=== PATIENT | female | born 1990 | race Caucasian/White ===

== ENCOUNTER 2018-07-13 08:29 | Inpatient (IN) ==
--- NOTE | 2018-07-13 09:43 | P.HPOB ---
History of Present Illness Primary Care Physician: No Primary Care Physician Chief Complaint: Post dates History of Present Illness: 28-year-old female at 40 weeks and 5 days by 19-week ultrasound presents for induction for postdates. Patient states that she had some vaginal spotting since her cervical exam yesterday. Her exam was 3 cm and 20%. She denies any loss of fluids or decreased movement. She states she is having some Jh Damon contractions. She denies any problems during this . She was GBS negative. She did not do her 1 hour glucose test. She said with her last delivery was vaginal full-term. There was a shoulder dystocia. A month after delivery she had severe hemorrhaging and had DNA testing done. She was MTHFR positive. Past medical history: Denies Surgical history: L foot Allergies: PNC (told as a baby unknown reaction), tetracyclines (itching) Medication: Aspirin Social: Denies any alcohol, tobacco, drug use Weeks Gestation:: 40 Para: 1 : 2 Total # of Miscarriage(s): 0 Total # of Abortions (Spontaneous & Elective): 0 - Inpatient Certification I certify that the inpatient services were ordered in accordance with Medicare regulations governing the order. This includes certification that hospital inpatient services are reasonable and necessary and in the case of services not specified as inpatient-only under 42 CFR 419.22(n), that they are appropriately provided as inpatient services in accordance to with the 2-midnight benchmark under 43 CFR 412.3(e) Review of Systems Constitutional: Denies fever(s) Eyes: Denies change in vision Ears, Nose, Mouth, and Throat: Denies headache(s) Cardiovascular: Denies chest pain Respiratory: Denies cough, Denies shortness of breath, Denies wheezing Gastrointestinal: Denies abdominal pain, Denies vomiting Genitourinary: Reports abnormal vaginal bleeding, Denies painful urination Musculoskeletal: Denies back pain Skin/Breast: Denies rash Neurologic: Denies headache(s) Endocrine: Denies flushing Hematologic/Lymphatic: Denies easy bruising Allergic/Immunologic: Denies hives Medications and Allergies Allergies Allergy/AdvReac Type Severity Reaction Status Date / Time Penicillins Allergy Unknown unknown Verified 07/13/18 09:47 Tetracyclines Allergy Itching Verified 07/13/18 09:47 Exam Vital signs: Vital Signs 03/01/19 09:22 Temperature 98.9 F Pulse Rate 92 H Respiratory Rate 18 Blood Pressure 124/83 Narrative: GENERAL: Well-nourished, well-developed patient. SKIN: Warm and dry. HEAD: Normocephalic and atraumatic. EYES: No scleral icterus. No injection or drainage. ENT: No nasal drainage noted. Mucous membranes pink. Airway patent. NECK: Supple, trachea midline. No JVD. CARDIOVASCULAR: Regular rate and rhythm without murmurs, gallops, or rubs. RESPIRATORY: Breath sounds equal bilaterally. No accessory muscle use. BREASTS: Bilateral exam showed no masses , no retractions, no nipple discharge. ABDOMEN/GI: Abdomen soft, non-tender, bowel sounds present, no rebound, no guarding Gravid to [-] weeks size Fundal Height: [-] GENITOURINARY: External Genitalia: intact and normal in appearance Dilatation:3 Effacement: 80 Station: -2 Membranes: intact Uterine Contractions: none FHT's: Category: 1 Baseline: 140 Reactive: yes Variability: moderate Decels: none EXTREMITIES: No cyanosis or edema. BACK: Nontender without obvious deformity. No CVA tenderness. NEUROLOGICAL: Awake and alert. Motor and sensory grossly within normal limits. Five out of 5 muscle strength in all muscle groups. Normal speech. Caprini VTE Risk Assessment Caprini VTE Risk Assessment: No/Low Risk (score <= 1) Caprini Risk Assessment Model: Point Value = 1 Point Value = 2 Point Value = 3 Point Value = 5 Age 41-60 Minor surgery BMI > 25 kg/m2 Swollen legs Varicose veins or History of unexplained or recurrent spontaneous Oral contraceptives or hormone replacement Sepsis (< 1 month) Serious lung disease, including pneumonia (< 1 month) Abnormal pulmonary function Acute myocardial infarction Congestive heart failure (< 1 month) History of inflammatory bowel disease Medical patient at bed rest Age 61-74 Arthroscopic surgery Major open surgery (> 45 min) Laparoscopic surgery (> 45 min) Malignancy Confined to bed (> 72 hours) Immobilizing plaster cast Central venous access Age >= 75 History of VTE Family history of VTE Factor V Leiden Prothrombin [id number] Lupus anticoagulant Anticardiolipin antibodies Elevated serum homocysteine Heparin-induced thrombocytopenia Other congenital or acquired thrombophilia Stroke (< 1 month) Elective arthroplasty Hip, pelvis, or leg fracture Acute spinal cord injury (< 1 month) Prophylaxis Regimen: Total Risk Factor Score Risk Level Prophylaxis Regimen 0-1 Low Early ambulation 2 Moderate Order ONE of the following: *Sequential Compression Device (SCD) *Heparin 5000 units SQ BID 3-4 Higher Order ONE of the following medications: *Heparin 5000 units SQ TID *Enoxaparin/Lovenox 40 mg SQ daily (WT < 150 kg, CrCl > 30 mL/min) *Enoxaparin/Lovenox 30 mg SQ daily (WT < 150 kg, CrCl > 10-29 mL/min) *Enoxaparin/Lovenox 30 mg SQ BID (WT < 150 kg, CrCl > 30 mL/min) AND/OR *Sequential Compression Device (SCD) 5 or more Highest Order ONE of the following medications: *Heparin 5000 units SQ TID (Preferred with Epidurals) *Enoxaparin/Lovenox 40 mg SQ daily (WT < 150 kg, CrCl > 30 mL/min) *Enoxaparin/Lovenox 30 mg SQ daily (WT < 150 kg, CrCl > 10-29 mL/min) *Enoxaparin/Lovenox 30 mg SQ BID (WT < 150 kg, CrCl > 30 mL/min) AND *Sequential Compression Device (SCD) Assessment and Plan - Diagnosis (1) Post-term , 40-42 weeks of gestation Code(s): O48.0 - Post-term Status: Acute - Plan 28 year old at 40 weeks and 5 days presents for induction for post dates. She was GBS negative. Previous delivery complicated by shoulder dystocia. No PMH. Month after had severe hemorrhage and genetic testing was positive for MTHFR -Admit to Labor and delivery for induction -A1c -US for growth Patient discussed with Dr. Delacruz.
--- NOTE | 2018-07-13 09:47 | P.PN ---
Subjective Interval history: [facility] Attending 28year-old presents for induction of labor at 40.5 scheduled for [facility]. Upon discussion with the patient, the patient had a shoulder dystocia with her previous delivery with a clavicular fracture. We discussed the goal of a healthy and healthy mother. We discussed the risks of vaginal delivery including lacerations, bleeding/ hemorrhage, and shoulder dystocia. We discussed that because she had a shoulder dystocia with her previous delivery, her risk of a recurrence of shoulder dystocia is reported to be as high as 25% and a shoulder dystocia carries with it a risk of approximately 3-5% risk of permanent and irreversible neurological injury that includes but is not limited to / brain damage and irreversible nerve injury to the arm that may affect the child's lifetime ability to move the arm. We discussed the mechanism of shoulder dystocia. The patient refused a delivery several times and stated she "would rather have a shoulder dystocia with an injury to the baby than have a ." She also stated that she is willing to accept the risks of permanent and irreversible injury because she said of her first shoulder dystocia "that's ok because I didn't and the baby didn't ." We discussed that a positive outcome with the last delivery and shoulder dystocia does not predict a good and safe outcome should this occur again. She believes this baby is about the same size as her previous. We discussed other indications for section including maternal indications, indications, and emergent indications. The risks, benefits, and alternatives of section were discussed with the patient. The risks include but are not limited to pain, infection, bleeding, injury to other organs like the bladder/bowel/nerves/vessels, injury to the baby, need for repeat operation, need for hysterectomy, need for blood transfusion, wound infection or breakdown, and other possible risks. All the patient's questions were answered and consent had previously been signed. She is adamant in her desire to proceed with a vaginal delivery, despite the risk of shoulder dystocia and risk of permanent and irreversible injury to the that could lead to brain damage, irreversible nerve injury, and even . We will obtain an ultrasound for growth and HgbA1C for informational purposes because of patient's history and lack of diabetes testing. Physical Exam Vital signs: Vital Signs 07/13/18 09:22 Temperature 98.9 F Pulse Rate 92 H Respiratory Rate 18 Blood Pressure 124/83 Results - Labs CBC & Chem 7: 07/13/18 09:50 07/13/18 09:50
[2018-07-13] MEDS ORDERED: Sod Chloride 0.9% Inj 1,000 ML IV.CONT PRN (09:50)
[2018-07-13] MEDS ORDERED: Sodium Chlor 0.9% Inj 500 ML IV.SIG PRN (09:50)
[2018-07-13] MEDS ORDERED: Oxytocin 30 Units/500ml Premix 30 UNITS/500 ML BAG IV.SIG ONE (09:50)
[2018-07-13] MEDS ORDERED: miSOPROStol 200 MCG Tablet RECTAL PRN (09:50)
[2018-07-13] MEDS ORDERED: Silver Nitrate/Potassium Nitrate Applicator Sticks TOPICAL PRN (09:50)
[2018-07-13] MEDS ORDERED: Carboprost Tromethamine Inj 250 MCG/ML Ampul IM PRN (09:50)
[2018-07-13] MEDS ORDERED: Naloxone Inj 0.4 MG/ML Vial IV.PUSH PRN ×2 (09:50→17:52)
[2018-07-13] MEDS ORDERED: Tranexamic Acid Inj 1,000 MG in Sodium Chlor 0.9% Inj 100 ML IV.SIG PRN (09:50)
[2018-07-13] MEDS ORDERED: Methylergonovine Inj 0.2 MG/ML Ampul IM PRN (09:50)
[2018-07-13] MEDS ORDERED: fentaNYL Citrate Inj 100 MCG/2 ML Ampul IV.PUSH PRN ×2 (09:50)
[2018-07-13] MEDS ORDERED: Citric Acid/Sodium Citrate Liq 30 ML UDC PO SCH (10:00)
[2018-07-13 10:26] LABS: Baso % (Auto) 0.2 % (0.0-2.0); Eos % (Auto) 0.3 % (0.0-4.0); Hematocrit 38.1 % (35.0-46.0); Lymph # (Auto) 1.7 th/mm3 (1.0-4.8); Lymph % (Auto) 19.1 % (9.0-44.0); Mean Corpuscular Hemoglobin 29.2 pg (27.0-34.0); Mean Corpuscular Volume 86.1 fL (80.0-100.0); Mean Platelet Volume 7.7 fL (7.0-11.0); Mono # (Auto) 0.6 th/mm3 (0.0-0.9); Mono % (Auto) 6.4 % (0.0-8.0); Neut # (Auto) 6.7 th/mm3 (1.8-7.7); Platelet Count 234 th/mm3 (150-450); Red Blood Count 4.43 mil/mm3 (4.00-5.30); Red Cell Distribution Width 15.3 % (11.6-17.2); White Blood Count 9.1 th/mm3 (4.0-11.0)
[2018-07-13 10:36] LABS: Bilirubin,Urine Negative (Negative); Clarity,Urine Clear (Clear); Color,Urine Yellow (Yellw/Straw); Glucose,Urine (UA) Negative (Negative); Leukocyte Esterase,Urine Negative (Negative); Mucus,Urine Few /lpf (Occasional); Nitrite,Urine Negative (Negative); Specific Gravity,Urine 1.014 (1.002-1.035); Squamous Epithelial Cell,Urine 1 /hpf (0-5)
[2018-07-13 10:46] LABS: Alanine Aminotransferase 16 U/L (10-53); Albumin 2.8 g/dL (3.4-5.0); Anion Gap 10 meq/L (5-15); Aspartate Aminotransferase 14 U/L (15-37); Blood Urea Nitrogen 5 mg/dL (7-18); Calcium 8.6 mg/dL (8.5-10.1); Carbon Dioxide 22.7 meq/L (21.0-32.0); Chloride 107 meq/L (98-107); Glomerular Filtration Rate Greater Than 89 mL/min (>89); Glucose,Random 67 mg/dL (74-106); Sodium 140 meq/L (136-145)
[2018-07-13 10:49] LABS: Alkaline Phosphatase 211 U/L (45-117); Total Protein 6.8 g/dL (6.4-8.2)
[2018-07-13] MEDS ORDERED: fentaNYL 2MCG-Bupiv 0.125% Epi 150 ML EPIDURAL ONE (12:37)
[2018-07-13] MEDS ORDERED: Lidocaine PF 1% Inj 5 ML Vial ONE (13:24)
[2018-07-13] MEDS ORDERED: Lidocaaine 1.5%/Epinephrine 1:200,000 PF Inj 5 ML Amp ONE (13:24)
[2018-07-13] MEDS ORDERED: fentaNYL 2MCG-Bupiv 0.125% Epi 150 ML EPIDURAL PRN (13:48)
[2018-07-13] MEDS ORDERED: fentaNYL Citrate Inj 100 MCG/2 ML Ampul EPIDURAL ONE (13:48)
[2018-07-13 17:33] LABS: Hemoglobin A1c 4.9 % (4.3-6.0)
--- NOTE | 2018-07-13 17:51 | P.OBDELI ---
Weeks Gestation: 40 Patient Started Active Labor: No Medical Induction of Labor: Yes Medical Induction Start Date: 07/13/18 Anesthesia: Epidural Episiotomy: none Vaginal Delivery: Normal, Spontaneous Presentation: Occiput anterior Nuchal Cord: x1 Delayed Cord Clamping (45 sec): Yes Placenta: Spontaneous delivery, Intact Laceration: 1 deg Repair: Chromic running Estimated blood loss (mL): 50 : Female Female A Delivery Date: 07/13/18 Infant Delivery Time: 17:26 Weight: 3.71 kg score (1 min): 8 score (5 min): 8 Additional Information: Delivered by Dr. Avila Supervised by Dr. WASHINGTON
[2018-07-13] MEDS ORDERED: Oxytocin 30 Units/500ml Premix 30 UNITS/500 ML BAG IV.CONT PRN (17:52)
[2018-07-13] MEDS ORDERED: Bisacodyl 10 MG Supp RECTAL PRN (17:52)
[2018-07-13] MEDS ORDERED: Zolpidem Tartrate 5 MG Tablet PO PRN (17:52)
[2018-07-13] MEDS ORDERED: Benzocaine 20% Top Spray 60 ML Can TOPICAL PRN (17:52)
[2018-07-13] MEDS ORDERED: Witch Hazel 50%/Glyderin 12.5% 40 Pad Jar RECTAL PRN (17:52)
[2018-07-13] MEDS ORDERED: Tranexamic Acid Inj 1,000 MG in Sodium Chlor 0.9% Inj 100 ML IV.SIG SCH (18:00)
[2018-07-13] MEDS ORDERED: Measles/Mumps/Rubella Vaccine Inj 0.5 ML Vial SQ ONE (21:00)
[2018-07-13] MEDS ORDERED: Tranexamic Acid Inj 1,000 MG in Sodium Chlor 0.9% Inj 100 ML IV.SIG ONE (21:15)
[2018-07-13] MEDS: Senna/Docusate Sodium 8.6/50 MG Tablet PO SCH (21:16)
[2018-07-13] MEDS: Acetaminophen 325 MG Tablet PO PRN (22:26)
[2018-07-14] MEDS: Citalopram 20 MG Tablet PO SCH (08:41)
[2018-07-14] MEDS: Senna/Docusate Sodium 8.6/50 MG Tablet PO SCH ×2 (08:41→20:48)
--- NOTE | 2018-07-14 08:46 | P.PNOB ---
Subjective Post day: 1 Interval history: Patient's pain is well-controlled. Patient reports eating and drinking without any nausea or vomiting. Patient reports minimal bleeding. Patient has passed gas but no bowel movements. Patient is walking without lower extremity pain or shortness of breath. Objective Vital Signs/I&O: Vital Signs 07/13/18 09:22 07/13/18 11:26 07/13/18 12:41 Temperature 98.9 F 99.1 F Pulse Rate 92 H 87 83 Respiratory Rate 18 18 20 Blood Pressure 124/83 127/67 07/13/18 13:00 07/13/18 13:05 07/13/18 13:15 Temperature Pulse Rate 95 H 91 H 87 Respiratory Rate Blood Pressure 122/72 125/55 L 124/61 07/13/18 13:20 07/13/18 13:42 07/13/18 14:20 Temperature Pulse Rate 82 79 78 Respiratory Rate Blood Pressure 110/62 112/57 L 104/58 L 07/13/18 14:25 07/13/18 14:40 07/13/18 14:45 Temperature 97.8 F Pulse Rate 77 76 84 Respiratory Rate 18 Blood Pressure 121/65 124/67 07/13/18 15:10 07/13/18 15:15 07/13/18 16:10 Temperature Pulse Rate 80 74 Respiratory Rate 18 Blood Pressure 123/67 124/80 07/13/18 17:10 07/13/18 18:15 07/13/18 18:30 Temperature 99.5 F Pulse Rate 99 H 78 Respiratory Rate 18 18 Blood Pressure 134/67 118/65 07/13/18 18:45 07/13/18 19:15 07/13/18 19:30 Temperature 99.0 F Pulse Rate 73 84 Respiratory Rate 18 Blood Pressure 124/63 135/72 07/13/18 19:32 07/13/18 20:36 07/14/18 08:00 Temperature 98.2 F 98.1 F Pulse Rate 76 76 80 Respiratory Rate 18 18 Blood Pressure 117/61 135/74 108/60 Result Diagrams: 07/13/18 09:50 07/13/18 09:50 Objective Remarks: GENERAL: Well-nourished, well-developed patient. CARDIOVASCULAR: Regular rate and rhythm without murmurs, gallops, or rubs. RESPIRATORY: Breath sounds equal bilaterally. No accessory muscle use. ABDOMEN/GI: Abdomen soft, non-tender. Fundus: Firm, non-tender at umbilicus. GENITOURINARY: Light to moderate bleeding. EXTREMITIES: No cyanosis or edema, non-tender, without signs of DVT. Medications and IVs: Active Medications Acetaminophen (Tylenol) 650 mg PO Q4H PRN PRN Reason: PAIN SCALE 1 TO 2 Last Admin: 07/13/18 22:26 Dose: 650 mg Al Hydroxide/Mg Hydroxide (Milk Of Magnesia Liq) 30 ml PO Q12H PRN PRN Reason: Mild Constipation Benzocaine (Americaine 20% Top [place]) 1 spray TOPICAL Q4H PRN PRN Reason: For Perineum Discomfort Last Admin: 07/13/18 21:15 Dose: 1 spray Bisacodyl (Dulcolax Supp) 10 mg RECTAL DAILY PRN PRN Reason: SEVERE CONSITIPATION Citalopram Hydrobromide (Celexa) 20 mg PO DAILY REPLACED BY [facility] Last Admin: 07/14/18 08:41 Dose: 20 mg Diphtheria/Pertussis/Tetanus Vacc (Boostrix Vaccine Inj) 0.5 ml IM .ONCE ONE Stop: 07/14/18 16:01 Oxytocin (Pitocin 30 Units/Ns 500 Ml Premix) 30 units in 500 mls @ 100 mls/hr IV.CONT UNSCH PRN PRN Reason: Heavy bleeding Ibuprofen (Motrin) 800 mg PO Q8H PRN PRN Reason: For Cramping Last Admin: 07/14/18 08:41 Dose: 800 mg Lactulose (Lactulose Liq) 30 ml PO DAILY PRN PRN Reason: SEVERE CONSITIPATION Naloxone HCl (Narcan Inj) 0.1 mg IV.PUSH Q2M PRN PRN Reason: for opiate reversal Ondansetron HCl (Zofran Odt) 4 mg PO Q6H PRN PRN Reason: NAUSEA OR VOMITING Oxycodone/Acetaminophen (Percocet 5/325 Mg) 1 tab PO Q4H PRN PRN Reason: PAIN SCALE 3 TO 5 Senna/Docusate Sodium (Talita-Colace) 1 tab PO BID REPLACED BY [facility] Last Admin: 07/14/18 08:41 Dose: 1 tab Sennosides (Senokot) 17.2 mg PO Q12H PRN PRN Reason: Moderate Constipation Sodium Chloride (Ns Flush) 2 ml IV.FLUSH BID LISA Last Admin: 07/13/18 21:15 Dose: 2 ml Sodium Chloride (Ns Flush) 2 ml IV.FLUSH PRN PRN PRN Reason: FLUSH AFTER USING IV ACCESS Witch Aurelia/Glycerin (Tucks Pads) 1 applicatio RECTAL QID PRN PRN Reason: HEMORRHOIDS Last Admin: 07/13/18 21:15 Dose: 1 applicatio Zolpidem Tartrate (Ambien) 5 mg PO HS PRN PRN Reason: SLEEP Assessment and Plan - Diagnosis (1) Post-term , 40-42 weeks of gestation Code(s): O48.0 - Post-term Status: Acute (2) H/O: depression Code(s): Z86.59 - Personal history of other mental and behavioral disorders Status: Acute Plan: Started on Citalopram [id number] PP depression scale + pt ( [facility] note - Dr. Abdullahi ) - Plan Patient is a 28-year-old delivered at 40 weeks and 5 days. Patient is day 1 after vaginal delivery. Patient was counseled to do 6 weeks of pelvic rest. Patient was counseled to follow up in 6 weeks. Patient requested follow-up and contraception. --AF VSS --Continue routine care --Motrin and Tylenol when necessary for pain --Encourage OOB --Pelvic rest for 6 weeks will need follow-up appointment at that time. --Contraception: outpatient --Patient history of depression: will administer post depression screening and continue Citalopram 20 mg --Anticipate discharge today or tomorrow Discussed with Dr. Khalil
[2018-07-14] MEDS: Acetaminophen 325 MG Tablet PO PRN ×2 (15:58→19:47)
[2018-07-14] MEDS ORDERED: Diphtheria/Tetanus/Pertussis Vaccine Inj 0.5 ML Syringe IM ONE (16:00)
--- NOTE | 2018-07-15 07:04 | P.PNOB ---
Subjective Post day: 2 Interval history: Patient's pain is well-controlled. Patient reports eating and drinking without any nausea or vomiting. Patient reports minimal bleeding. Patient has passed gas and had a bowel movement. Patient is walking without lower extremity pain or shortness of breath. Patient endorses feelings of depression but denies any SI or HI. She was restarted on Citalopram. Objective Vital Signs/I&O: Vital Signs 07/14/18 08:00 07/14/18 19:39 Temperature 98.1 F 98.1 F Pulse Rate 80 65 Respiratory Rate 18 18 Blood Pressure 108/60 136/86 Result Diagrams: 07/13/18 09:50 07/13/18 09:50 Objective Remarks: GENERAL: Well-nourished, well-developed patient. CARDIOVASCULAR: Regular rate and rhythm without murmurs, gallops, or rubs. RESPIRATORY: Breath sounds equal bilaterally. No accessory muscle use. ABDOMEN/GI: Abdomen soft, non-tender. Fundus: Firm, non-tender at umbilicus. GENITOURINARY: Light to moderate bleeding. EXTREMITIES: No cyanosis or edema, non-tender, without signs of DVT. Medications and IVs: Active Medications Acetaminophen (Tylenol) 650 mg PO Q4H PRN PRN Reason: PAIN SCALE 1 TO 2 Last Admin: 07/14/18 19:47 Dose: 650 mg Al Hydroxide/Mg Hydroxide (Milk Of Magnesia Liq) 30 ml PO Q12H PRN PRN Reason: Mild Constipation Benzocaine (Americaine 20% Top [place]) 1 spray TOPICAL Q4H PRN PRN Reason: For Perineum Discomfort Last Admin: 07/13/18 21:15 Dose: 1 spray Bisacodyl (Dulcolax Supp) 10 mg RECTAL DAILY PRN PRN Reason: SEVERE CONSITIPATION Citalopram Hydrobromide (Celexa) 20 mg PO DAILY LISA Last Admin: 07/14/18 08:41 Dose: 20 mg Oxytocin (Pitocin 30 Units/Ns 500 Ml Premix) 30 units in 500 mls @ 100 mls/hr IV.CONT UNSCH PRN PRN Reason: Heavy bleeding Ibuprofen (Motrin) 800 mg PO Q8H PRN PRN Reason: For Cramping Last Admin: 07/14/18 19:48 Dose: 800 mg Lactulose (Lactulose Liq) 30 ml PO DAILY PRN PRN Reason: SEVERE CONSITIPATION Naloxone HCl (Narcan Inj) 0.1 mg IV.PUSH Q2M PRN PRN Reason: for opiate reversal Ondansetron HCl (Zofran Odt) 4 mg PO Q6H PRN PRN Reason: NAUSEA OR VOMITING Oxycodone/Acetaminophen (Percocet 5/325 Mg) 1 tab PO Q4H PRN PRN Reason: PAIN SCALE 3 TO 5 Senna/Docusate Sodium (Talita-Colace) 1 tab PO BID [facility] Last Admin: 07/14/18 20:48 Dose: 1 tab Sennosides (Senokot) 17.2 mg PO Q12H PRN PRN Reason: Moderate Constipation Sodium Chloride (Ns Flush) 2 ml IV.FLUSH BID [facility] Last Admin: 07/14/18 23:57 Dose: Not Given Sodium Chloride (Ns Flush) 2 ml IV.FLUSH PRN PRN PRN Reason: FLUSH AFTER USING IV ACCESS Witch Aurelia/Glycerin (Tucks Pads) 1 applicatio RECTAL QID PRN PRN Reason: HEMORRHOIDS Last Admin: 07/13/18 21:15 Dose: 1 applicatio Zolpidem Tartrate (Ambien) 5 mg PO HS PRN PRN Reason: SLEEP Assessment and Plan - Diagnosis (1) Post-term , 40-42 weeks of gestation Code(s): O48.0 - Post-term Status: Acute - Plan Patient is a 28-year-old delivered at 40 weeks and 5 days. Patient is day 2 after vaginal delivery. Patient was counseled to do 6 weeks of pelvic rest. Patient was counseled to follow up in 6 weeks. Patient requested follow-up and contraception. --AF VSS --Continue routine care --Motrin and Tylenol when necessary for pain --Encourage OOB --Pelvic rest for 6 weeks will need follow-up appointment at that time. --Contraception: outpatient --Patient history of depression: post depression screening 15; continue Citalopram 20 mg; discussed with nursing staff coordination with case management to assist patient with insurance and creating primary care follow up this week. --Anticipate discharge today Discussed with Dr. Chambers - Attending Attestation The exam, history, and the medical decision-making described in the above note were completed with the assistance of the resident physician. I reviewed and agree with the findings presented. I attest that I had a [id number] encounter with the patient on the same day, and personally performed and documented my assessment and findings in the medical record.
[2018-07-15 08:24] VITALS: BP 124/74; PULSE 62; RESP 16; TEMP 98.5
[2018-07-15] MEDS: Citalopram 20 MG Tablet PO SCH (09:58)
[2018-07-15] MEDS: Senna/Docusate Sodium 8.6/50 MG Tablet PO SCH (09:58)
[2018-07-15] MEDS ORDERED: Influenza (Quadrivalent) Vaccine 0.5 ML Syringe IM ONE (10:00)
== END 2018-07-15 10:56 | disposition home or self-care (01) | DRG 807 ==
LOC: H2E 08:29 → H1EA 20:22
PROVIDERS: ADMIT Obstetrics & Gynecology; ATTEND Obstetrics & Gynecology
CPT/HCPCS: 59025; 76816; 80053; 81001; 83036; 85025; 86900; 86901; 90658; 90686; 90715; J2405; J7120; Q2038